=== PATIENT | female | born 1970 | race Caucasian/White ===

== ENCOUNTER 2024-03-20 08:29 | Outpatient (AMB) | payer OTHER, SELFPAY ==
--- NOTE | 2024-03-20 08:45 | MHC.OFFWIV ---
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 pink eye Allergies No Known Allergies Allergy (Verified 03/20/24 09:03) HPI HPI Comments History of Present Illness Details Patient is a 54-year-old female who woke up with her left eye crusted shut. She states it is a little bit red and swollen and itchy. She denies any changes in her vision. Review of Systems Const All systems reviewed & are unremarkable except as noted in HPI and below Physical Exam Vital Signs: Last Vital Signs Temp 98.2 F 03/20/24 08:46 Pulse 70 03/20/24 08:46 BP 120/70 03/20/24 08:46 Pulse Ox 97 03/20/24 08:46 Oxygen Delivery Method Room Air 03/20/24 08:46 BMI result Body Mass Index 22.8 Const General: cooperative, healthy appearing, comfortable, no acute distress and well developed Orientation/consciousness: patient oriented x3 Limitations: no limitations HEENT Head: Yes normal to inspection Eyes Alignment and Position: alignment normal and position normal Periorbital: periorbital findings abnormal left (Scant amount of swelling) Eyelids: Yes eyelid abnormality (Left eyelids scant amount of swelling) Sclerae: scleral abnormal left scleral exudate purulent and scleral injection (Scant amount) Pupils: Equal, round and reactive pupils present EOM: EOMs intact bilaterally Neck Neck: Yes normal visual inspection and Yes supple Neuro General: patient oriented x3 Cranial nerves: Yes Equal, round and reactive pupils present Assessment & Plan Assessment & Plan (1) Bacterial conjunctivitis of left eye: Code(s): H10.9 - Unspecified conjunctivitis Plan: Erythromycin ointment sent to pharmacy, explained to patient how to use the medication and recommended she wash her hands several times daily to avoid spreading it to her other eye or someone else. Plan See above Medications: New erythromycin Apply to left inner lower eyelid as directed 0.5 inches ophthalmic (eye) qid 3.5 grams 0RF Coding Level of Care Code New Pt Level 3 (01047) Diagnoses Bacterial conjunctivitis of left eye H10.9
[2024-03-20 08:46] VITALS: BP 120/70; PULSE 70; TEMP 36.8; O2SAT 97; BMI 22.8
== END 2024-03-20 09:11 | disposition home or self-care (01) ==
PROVIDERS: PCP Nurse Practitioner Family; Visit Provider Physician Assistant
DX: H10.9 Unspecified conjunctivitis (principal)

== ENCOUNTER → 2024-03-20 08:29 | Outpatient (BNVA) | payer OTHER, SELFPAY | PROVIDERS: PCP Nurse Practitioner Family | DX: H10.89 Other conjunctivitis (principal) ==